=== PATIENT | male | born 1965 | race Hispanic/Latino ===

== ENCOUNTER 2025-02-20 11:05 | Day surgery (SDC) | payer BC, OTHER ==
--- NOTE | 2025-02-19 09:58 | RAD REPORT ---
EXAMINATION: TWO VIEW CHEST XR CLINICAL INDICATION: Pre-op pending mass removal from back TECHNIQUE: 2 views of the chest was performed. COMPARISON: 11/21/2017 FINDINGS: The lungs are well inflated and clear. The heart is upper limit of normal in size. No displaced fract ures evident. IMPRESSION: No acute or significant abnormalities.
[2025-02-19 10:08] LABS: Absolute Eosinophils 0.1 K/uL (0-0.5); Absolute Lymphocytes (CBC) 1.3 K/uL (0.7-4.9); Absolute Monocytes 0.9 K/uL (0.1-1.3); Absolute Neutrophil 2.8 K/uL (1.8-8.0); Basophils % 0.9 % (0-1.3); Eosinophils % 2.5 % (0-4.4); Hemoglobin 14.7 g/dL (13.6-17.9); Lymphocytes % 25.1 % (15.3-44.8); MCH 29.9 pg (27.0-35.0); MCHC 34.1 g/dL (32.0-36.0); MCV 87.6 fL (80-100); MPV 10.3 fL (7.6-11.3); Monocytes % 17.5 % (3.3-12.3); Nucleated Red Blood Cells % 0.2 % (0-0); Platelets 175 thou/uL (152-406); RBC Red Blood Cell Count 4.91 M/uL (4.33-5.43); Red Cell Distribution Width 13.5 % (12.1-15.2)
[2025-02-19 10:22] LABS: Anion Gap 9.2 mEq/L (5.0-15.0); Potassium 4.2 mEq/L (3.5-5.1)
--- NOTE | 2025-02-19 10:41 | EKG ---
Test Date: 2025-02-19 Test Time: 09:13:38 Sand Blaster: TRINA MEASUREMENT RESULTS: Intervals: Rate: 71 ID: [id number] QRSD: 84 QT: 392 QTc: 425 Hensley: P: 51 ID: [id number] QRS: 67 T: 58 INTERPRETIVE STATEMENTS: Normal sinus rhythm Normal ECG Compared to ECG 11/21/2017 12:56:40 Atrial fibrillation no longer present T-wave abnormality no longer present Electronically Signed On 02-19-25 10:40:28 CDT by Carmelo De La O
[2025-02-20] MEDS ORDERED: NA CHLORIDE 0.9% 1,000 ML ONE (11:44)
[2025-02-20] MEDS ORDERED: LABETALOL 20 MG/4ML SYRINGE IV ONE (11:57)
[2025-02-20] MEDS ORDERED: FENTANYL CITR 100 MCG/2 ML ONE (12:21)
[2025-02-20] MEDS ORDERED: propofoL 200 MG/20 ML VIAL IV ONE (12:21)
[2025-02-20] MEDS ORDERED: MIDAZOLAM HCL 2 MG/2 ML INJ ONE (12:21)
[2025-02-20] MEDS ORDERED: dexAMETHasone 10 MG/ML VIAL ONE (12:21)
[2025-02-20] MEDS ORDERED: LIDOCAINE 2% MPF 5 ML VIAL ONE (12:21)
[2025-02-20] MEDS ORDERED: ONDANSETRON 4 MG/2 ML VIAL ONE (12:21)
[2025-02-20] MEDS ORDERED: KETOROLAC 30 MG/ML INJ ONE (12:21)
[2025-02-20] MEDS ORDERED: CEFAZOLIN SODIUM 1 GM/VIAL ONE ×2 (12:38→12:58)
[2025-02-20] MEDS ORDERED: NS 0.9% VIAL 20 ML ONE ×2 (12:58)
--- NOTE | 2025-02-20 13:20 | P.BOP ---
Preoperative diagnosis: infected back subQ mass Postoperative diagnosis: same Primary procedure: Excisional biopsy of infected back subQ mass [id number] Estimated blood loss: <10cc Specimen: mass and culture Findings: infected back subQ mass Anesthesia: General Drain(s): Wound drain (rayo) Transferred to: Recovery Room Condition: Good
[2025-02-20 15:10] VITALS: BP 139/72; TEMP 97.2; O2SAT 97
--- NOTE | 2025-02-20 16:40 | OP ---
Date of Procedure: 02/20/2025 Surgeon: Collins Iniguez MD Preoperative Diagnosis: Infected back subcutaneous mass. Postoperative Diagnosis: Infected back subcutaneous mass. Procedure Performed: Excisional biopsy of infected back subcutaneous mass, 4 x 4 x 2 cm. Estimated Blood Loss: Less than 10 cc. Specimen: Mass and culture. Finding: Infected back subcutaneous mass. Anesthesia: General plus local. Complications: None. Packing: Nasal wound drain, Enochs. Indciation: This is the case of a 59-year-old patient, comes to us with an infected mass. He was st arted on antibiotics. The erythema got better, but the mass still present. The benefits, alternativ es, and risks of excisional biopsy were fully explained, which include, but not limited to infection, bleeding, damage to adjacent structures, anesthesia complication, recurrence, ND, and . He als o understands this may not relieve symptoms. He might need more than one surgical intervention. He understood, signed a consent. Description Of Procedure: The area of concern was marked by me and the patient in the holding room. Patient brought to the operating room, placed in supine position. Anesthesia was done without compl ication. The patient was placed in lateral decubitus position with proper protection. Back area was prepped and draped in a sterile fashion. Local anesthetic was applied followed by a wedge incision of the skin all the way down to deep subcutaneous tissue. We noticed some infection process going de ep into the subcutaneous tissue that was profusely irrigated. After that, I obtained hemostasis, gustavo bindu local anesthetic, and then placed a Jordi in that area, approximated the skin to allow some chris inage to be out with the help of a mattress suture. The gauze was placed over the Enochs. The Penr ose goes all the way down deep in the incision. This allows for proper drainage. The patient tolera bao the procedure well. Sponge count and instrument counts correct. Patient sent to Recovery in sta ble condition. Condition: Stable. Activity: As tolerated. No lifting. Follow up in my office in 1 week. Call for appointment [phone]. Keep area dry for 48 hours, then may shower. Change out the dressings p.r.n. or check he could wait until Sunday, so I can remove the drain. VICK/MAYA Voice ID: [id number] Report ID: [id number]
== END 2025-02-20 15:10 | disposition home or self-care (01) ==
LOC: OR 11:05
PROVIDERS: ATTEND Surgery
PROC: 0JB70ZZ Excision of Back Subcutaneous Tissue and Fascia, Open Approach (ICD-10-PCS; principal; 2025-02-20 12:30)
DX: L72.0 Epidermal cyst (principal); L08.9 Local infection of the skin and subcutaneous tissue, unspecified
CPT/HCPCS: 11404; 93005; 87070; 85025; 80048; 36415; 87205; 88304; 87075; 71046; A4216 ×2; J2704; J2003; J2250; J3010; J1100; J2405; J7030; J0690 ×2